=== PATIENT | male | born 1995 | race American Indian/Alaskan Native ===

== ENCOUNTER 2019-09-19 17:29 | Emergency (ER) | payer SELFPAY ==
[2019-09-19] MEDS ORDERED: MORPHINE 4 MG/1 ML INJ IM ONE (17:44)
--- NOTE | 2019-09-19 17:44 | Event Note ---
ED Screening Note Date of service: 09/19/19 Time: 17:42 ED Screening Note: This initial assessment/diagnostic orders/clinical plan/treatment(s) is/are subject to change based on patients health status, clinical progression and re- assessment by fellow clinical providers in the ED. Further treatment and workup at subsequent clinical providers discretion. Patient/guardian urged not to elope from the ED as their condition may be serious if not clinically assessed and managed. Initial orders include: 24yo M states that he had back pain 4 days ago,today he urinated blood frequently. He states that he has R scrotal pain currently that is a 10 of 10.
--- NOTE | 2019-09-19 23:28 | Ultrasound Report ---
US testicular doppler comp INDICATION / CLINICAL INFORMATION: scrotal pain. Doppler ultrasound and spectral analysis was performed on both testicles COMPARISON: None available. FINDINGS: A 3 mm hyperechoic structure is seen in the right epididymal head possibly representing calcification . A small hydrocele is seen on the right. The testicles are normal in size and appearance. Normal sym metric blood flow is seen in both testicles. IMPRESSION: 1. 3 mm hyperechoic structure in the right epididymal head which could represent calcification 2. Small right-sided hydrocele 3. Normal symmetric blood flow in both testicles without evidence of torsion Signer Name: Avelino Barrera MD FACKacey Signed: 09/19/2019 11:23 PM Workstation Name: [id number]
--- NOTE | 2019-09-20 00:42 | Emergency Department Report ---
HPI - General Chief Complaint: Abdominal Pain Time Seen by Provider: 09/19/19 17:41 - HPI HPI: 24-year-old -[place] male presents to the emergency department with a complaint of right-sided flank pain, right-sided abdominal pain, right testicular pain and hematuria. Patient says that he had 1 or 2 episodes a week ago in which she was "peeing blood" but that resolved. However he began having the hematuria again today, along with the flank/abdominal/testicular pain. He also has had some episodes of nausea and vomiting today. He denies any fever but has had some chills. No past medical history. He took a full dose aspirin prior to presentation without much relief. ED Past Medical Hx - Past Medical History Previous Medical History?: No - Surgical History Past Surgical History?: No - Medications Home Medications: Home Medications Medication Instructions Recorded Confirmed Last Taken Type Ondansetron [Zofran Odt] 4 mg PO Q8HR PRN #12 tab.rapdis 09/20/19 Unknown Rx Sulfamethoxazole/Trimethoprim 1 each PO BID #10 tablet 09/20/19 Unknown Rx [Bactrim DS TAB] ED Review of Systems ROS: Stated complaint: KIDNEY STONE Other details as noted in HPI Comment: All other systems reviewed and negative Constitutional: chills. denies: fever Eyes: denies: eye pain, vision change ENT: denies: ear pain, throat pain Respiratory: denies: cough, shortness of breath Cardiovascular: denies: chest pain, palpitations Gastrointestinal: abdominal pain, nausea, vomiting Genitourinary: hematuria. denies: dysuria Musculoskeletal: back pain. denies: arthralgia Skin: denies: rash, lesions Neurological: denies: headache, weakness Physical Exam - Physical Exam Vital Signs: Vital Signs 09/19/19 17:36 Temperature 97.8 F Pulse Rate 81 Respiratory 24 Rate Blood Pressure 131/71 O2 Sat by Pulse 100 Oximetry ED Course Vital Signs 09/19/19 17:36 Temperature 97.8 F Pulse Rate 81 Respiratory 24 Rate Blood Pressure 131/71 O2 Sat by Pulse 100 Oximetry ED Medical Decision Making - Lab Data Result diagrams: 09/20/19 01:18 09/20/19 01:18 - Radiology Data Radiology results: report reviewed US testicular doppler comp INDICATION / CLINICAL INFORMATION: scrotal pain. Doppler ultrasound and spectral analysis was performed on both testicles COMPARISON: None available. FINDINGS: A 3 mm hyperechoic structure is seen in the right epididymal head possibly representing calcification. A small hydrocele is seen on the right. The testicles are normal in size and a ppearance. Normal symmetric blood flow is seen in both testicles. IMPRESSION: 1. 3 mm hyperechoic structure in the right epididymal head which could represent calcification 2. Small right-sided hydrocele 3. Normal symmetric blood flow in both testicles without evidence of torsion CT abdomen pelvis wo con INDICATION / CLINICAL INFORMATION: RENAL STONE PROTOCOL!!! Pt complains of RIGHT sided flank pain and "Gross" hematuria. No previous abdominal surgeries.. TECHNIQUE: All CT scans at this location are performed using CT dose reduction for ALARA by means of automated exposure control. COMPARISON: None available. FINDINGS: No free fluid is seen in the abdomen. Stones are seen in both kidneys. The right ureter is mildly dilated. The liver, spleen, pancreas, adrenal glands and great vessels are normal. No enlarged mesenteric or retroperitoneal lymph nodes are identified. In the pelvi s, no free fluid is seen. A 3 mm stone is present in the bladder. No enlarged lymph nodes are identified. The appendix is normal. No significant skeletal abnormality is seen. IMPRESSION: 1. 3 mm stone in the bladder with mild right ureteral dilatation. The stone probably passed into the bladder recently 2. Bilateral renal stones - Medical Decision Making This patient presents to the emergency department with a complaint of some right back, flank and right-sided testicular pain, as well as some recent hematuria. Labs are mostly unremarkable except for hematuria seen on the urinalysis. A testicular/scrotal Doppler ultrasound was done that does not show any signs of torsion. CT scan of the abdomen and pelvis without contrast shows a 3 mm stone in the bladder with some mild right ureter dilatation showing that he must have recently passed the stone. Urinalysis also shows some ketones. Patient able to pass an oral challenge. Vital signs stable throughout his ED course including being afebrile. Patient is feeling improved. He will be discharged home to follow-up with primary care and urology. He will increase his oral rehydration and was given a 5-day course of antibiotics. He will return to the emergency department with any worsening of his symptoms or any acute distress. Critical Care Time: No Critical care attestation.: If time is entered above; I have spent that time in minutes in the direct care of this critically ill patient, excluding procedure time. ED Disposition Clinical Impression: Nephrolithiasis Hematuria Qualifiers: Hematuria type: gross Qualified Code(s): R31.0 - Gross hematuria Disposition: TO HOME OR SELFCARE Is pt being admited?: No Condition: Stable Instructions: Kidney Stones (ED), Renal Colic (ED), Acute Hematuria (ED) Additional Instructions: Please follow-up with a primary care physician in the next few days. Return to the emergency department with any worsening of your symptoms or any acute di stress. I have given you a referral for a local urologist, Dr. Gomez, to follow-up regarding the kidney stones and blood in your urine. Prescriptions: Sulfamethoxazole/Trimethoprim [Bactrim DS TAB] 1 each PO BID #10 tablet Ondansetron [Zofran Odt] 4 mg PO Q8HR PRN #12 tab.rapdis PRN Reason: Nausea Referrals: PRIMARY CARE, [Primary Care Provider] - 3-5 Days SARAH GOMEZ MD [Staff Physician] - 3-5 Days Time of Disposition: 02:23
[2019-09-20 01:48] LABS: Bacteria,Urine 1+ /HPF (Negative); Bilirubin,Urine NEG (Negative); Blood,Urine LG (Negative); Color,Urine Yellow (Yellow); Mucus,Urine 2+ /HPF; Protein,Urine <15 mg/dL mg/dL (Negative); Urobilinogen,Urine < 2.0 mg/dL (<2.0)
[2019-09-20 01:49] LABS: RBC,Urine > 182.0 /HPF (0.0-6.0)
[2019-09-20 01:51] LABS: Basophils % (Auto) 0.3 % (0.0-1.8); Hematocrit 43.9 % (35.5-45.6); Hemoglobin 14.8 gm/dl (11.8-15.2); Lymphocytes # (Auto) 0.8 K/mm3 (1.2-5.4); Lymphocytes % (Auto) 8.7 % (13.4-35.0); Mean Corpuscular HGB Conc 34 % (32-34); Mean Corpuscular Volume 87 fl (84-94); Monocytes # (Auto) 0.7 K/mm3 (0.0-0.8); Monocytes % (Auto) 7.2 % (0.0-7.3); Platelet Count 215 K/mm3 (140-440); Red Blood Count 5.03 M/mm3 (3.65-5.03); Red Cell Distribution Width 13.5 % (13.2-15.2)
--- NOTE | 2019-09-20 01:55 | Cat Scan Report ---
CT abdomen pelvis wo con INDICATION / CLINICAL INFORMATION: RENAL STONE PROTOCOL!!! Pt complains of RIGHT sided flank pain and "Gross" hematuria. No previous abd ominal surgeries.. TECHNIQUE: All CT scans at this location are performed using CT dose reduction for ALARA by means of automated e xposure control. COMPARISON: None available. FINDINGS: No free fluid is seen in the abdomen. Stones are seen in both kidneys. The right ureter is mildly dil ated. The liver, spleen, pancreas, adrenal glands and great vessels are normal. No enlarged mesenteri c or retroperitoneal lymph nodes are identified. In the pelvis, no free fluid is seen. A 3 mm stone is present in the bladder. No enlarged lymph nodes are identified. The appendix is normal. No significant skeletal abnormality is seen. IMPRESSION: 1. 3 mm stone in the bladder with mild right ureteral dilatation. The stone probably passed into the bladder recently 2. Bilateral renal stones Signer Name: Avelino Barrera MD FACR Signed: 09/20/2019 1:50 AM Workstation Name: [id number]
[2019-09-20 02:13] LABS: Alanine Aminotransferase 10 units/L (7-56); Albumin 4.8 g/dL (3.9-5); BUN/Creatinine Ratio 23; Blood Urea Nitrogen 16 mg/dL (9-20); Calcium 9.9 mg/dL (8.4-10.2); Hemolysis Index 5
[2019-09-20 04:18] VITALS: BP 122/74
== END 2019-09-20 02:10 | disposition home or self-care (01) ==
LOC: ED 17:29
DX: N20.0 Calculus of kidney (principal)
CPT/HCPCS: 36415; 74176; 80053; 81001; 85025; 87086; 93975; 96372; 99284; J2270